=== PATIENT | male | born 1950 | race Caucasian/White ===

== ENCOUNTER 2020-12-05 11:54 | Emergency (ER) | payer OTHER ==
[~2020-12-05] VITALS: Ht 170.2 cm; Wt 76.2 kg
--- NOTE | 2020-12-05 12:00 | NUR ---
BIB RA 79 FROM [employer],WITNESSED SEIZURE,UNABLE TO GIVE ANY HISTORY. PATIENT A/OX2, BREATHING EVEN AND UNLABORED, NO SOB NOTED. IV LINE PRESENTED ON LAC G20. SEIZURE PRECAUTION OBSERVED.
--- NOTE | 2020-12-05 12:03 | NUR ---
URINAL PROVIDED AT BEDSIDE.
[2020-12-05 12:26] LABS: BASOPHILS # (AUTO) 0.1 /CMM (0.0-0.2); BASOPHILS % (AUTO) 1.3 % (0.0-2.0); HEMATOCRIT 30 % (39-51); HEMOGLOBIN 9.8 g/dL (13.5-17.5); LYMPHOCYTES # (AUTO) 0.6 /CMM (0.8-4.8); MEAN CORPUSCULAR HGB CONC 33 g/dl (31.0-36.0); MEAN CORPUSCULAR VOLUME 89 fL (80-96); MONOCYTES # (AUTO) 0.4 /CMM (0.1-1.30); MONOCYTES % (AUTO) 8.2 % (2.0-12.0); NEUTROPHILS # (AUTO) 4.2 /CMM (1.8-8.9); NEUTROPHILS % (AUTO) 77.5 % (43.0-81.0); PLATELET COUNT (AUTO) 269 /CMM (150-450); WHITE BLOOD COUNT (AUTO) 5.4 K/uL (4.3-11.0)
[2020-12-05 12:41] LABS: ALANINE AMINOTRANSFERASE 24 U/L (12-78); ALBUMIN 3.8 g/dL (3.4-5.0); ALCOHOL, BLOOD < 3 mg/dL (0-0); ALKALINE PHOSPHATASE 125 U/L (46-116); ASPARTATE AMINOTRANSFERASE 33 U/L (15-37); BILIRUBIN,DIRECT 0.2 mg/dL (0.0-0.2); BILIRUBIN,TOTAL 0.5 mg/dL (0.2-1.0); CALCIUM, SERUM 8.5 mg/dL (8.5-10.1); CARBON DIOXIDE 22 mmol/L (21-32); CHLORIDE 104 mmol/L (98-107); GLUCOSE 178 mg/dL (74-106); POTASSIUM 3.9 mmol/L (3.5-5.1); SODIUM SERUM 142 mmol/L (136-145); TOTAL PROTEIN, SERUM 7.8 g/dL (6.4-8.2); UREA NITROGEN, BLOOD 12 mg/dL (7-18)
[2020-12-05 12:42] LABS: ACETAMINOPHEN < 10 ug/ml (10-30)
--- NOTE | 2020-12-05 13:24 | NUR ---
PATIENT UNABLE TO PROVIDE URINE, DR. DUBOIS AWARE. CALLED AMUSEMENT CENTRE MANAGER FOR CONSULT.
--- NOTE | 2020-12-05 13:35 | NUR ---
"Ticker Wirer consult: director of professional services consult requested for homelessness. Patient is a 70-year-old, male. SW met with patient at his bedside in the emergency department. Patient was alert and oriented x4. Patient was resting. Per chart, patient was brought in by ambulance on 12/05/20 due to a seizure. Patient stated that he is currently homeless and reported that he receives SSI. Patient stated that he is independent with his ADLs. SW assessed patients history of substance use and patient stated that he has beer occasionally. Patient stated that he has no history of mental illness. Patient denied current suicidal or homicidal ideation. SW offered patient with homeless resources and patient accepted the resources. Patient signed the homeless waiver and SW filed waiver in the patients chart. Patient stated that he will return to his prior living arrangement on the street and can use public transportation. PLAN: Patient will return to his prior living arrangement on the street. No further SS intervention, however, SW will remain available as needed. Year-round shelters: [facility] [address] [address] ; [facility] [address] [place] [address]; [facility] [id number] [facility] [address] SPA 4 | [facility] [place] Provider: First [facility] Serve Address: [address], [address] # of Beds: 48 Population Served: [facility] Provider: [facility] Serve Address: [address] [facility], [address] # of Beds: 73 Population Served: [facility] 6 | [facility] Provider: [facility] Address: [address] [facility], [address] # of Beds: 63 Population Served: [facility] 3 | [facility] Provider: [facility] [place] Address: [address] [facility], [address] # of Beds: 75 Population Served: [facility] 8 | [facility] Provider: [facility] [place] Address: [address] [facility] [place] [place] [address] # of Beds: 80 Population Served: [facility] SPA 1 | [facility] Provider: Feliz BANKS Address: [address] [place] [address], [address] # of Beds: 85 Population Served: [facility] SPA 2 | [facility] Provider: Dora avilez [facility] Address: Confidential (please call for location) # of Beds: 52 Population Served: [facility] SPA 4 | [facility] Provider: [facility] Address: [address] [facility], [address] # of Beds: 49 Population Served: [facility] Provider: [facility] To Serve Address: [address] [place] [address] # of Beds: 27 Population Served: [facility]: [facility]: [address] [facility] ; [facility] [address] [facility] ; [facility] [address] [facility] . Food Resources: [place] [facility] at [facility]- [address] [facility] [place]; Meet Each Need with [facility] ([facility]) [address] [facility]; [facility] [address] [facility]; [facility] [address] [facility] Mental Health resources provided: [facility] [address] [place] [address] ; [facility] [address] [facility] [address], [place] [address] ; [facility] [address] [place] [address] ; [facility] [address] [place], [place] [phone] Healthcare Clinics: [facility] [address] [facility], [address] [place]. [place] ; [facility] [address] [facility] [address] [facility] [address] [address] [facility]. [place] [phone] Counseling--Outpatient [facility] [address] [facility], [address] [place], [place] [address] (Specializes in in-depth psychotherapy for emotional distress: anxiety, depression, interpersonal conflicts, life transitions, childhood abuse) PSYCHIATRIC OUTPATIENT SERVICES [facility] Partial Hospitalization and Intensive Outpatient Program (Managed Care and [place] Only) [address] [place] [facility] [id number] [facility] Partial Hospitalization and Outpatient Program [address] [facility] [place] [address] [facility] Partial Hospitalization and Outpatient Program [address] [facility]. [place], [place] [id number] [facility] [address] [facility]. [address] [place], [place] [id number] [facility] Partial Hospitalization and Outpatient Program [address] [place] [phone] "
--- NOTE | 2020-12-05 13:35 | NUR ---
WING MAILER MACHINE OPERATOR JOVAN AT BEDSIDE FOR CONSULT.
--- NOTE | 2020-12-05 13:42 | NUR ---
PATIENT A/OX4, BREATHING EVEN AND UNLABORED, IN STABLE CONDITION. AMBULATORY WITH A CANE. IV removed. Catheter intact and site benign. Pressure and 4x4 applied to site. No bleeding noted.Patient given written and verbal discharge instructions. Patient verbalizes understanding of instructions. Patient is ambulatory with steady gait. Refuses offer of assisted placement. Patient given list of available shelters in surrounding area.
[2020-12-05 13:44] VITALS: BP 149/77
== END 2020-12-05 13:44 | disposition home or self-care (01) ==
LOC: ER 11:57 → EDBD 11:57 → ER 13:44
DX: R56.9 Unspecified convulsions (principal); Z60.2 Problems related to living alone
CPT/HCPCS: 36415; 70450-TC; 80048-TC; 80076-TC; 85025-TC; G0480

== ENCOUNTER 2021-03-28 20:50 | Emergency (ER) | payer OTHER ==
[~2021-03-28] VITALS: Ht 177.8 cm; Wt 76.2 kg
--- NOTE | 2021-03-28 20:58 | NUR ---
BIBRA C/O GROUND LEVEL FALL, OPEN WOUND ON BACK OF THE HEAD NOT ACTIVE, PT DENIES LOSS OF CONSCIOUSNESS PAIN 5/10, [facility] 15 ABLE TO VEBRLIZED NEEDS BUT POOR HISTORIAN, HOOKED TO MONITOR AND SPOX, WILL CONT TO MONITOR
[2021-03-28] MEDS ORDERED: TDAP [DIPH/PERTUSSIS/TET] 0.5 ML VIAL IM ONE ×2 (21:30→21:46)
[2021-03-28] MEDS ORDERED: IV NS 0.9% 1,000 ML BAG IV ONE (21:30)
--- NOTE | 2021-03-28 21:45 | NUR ---
HAT BODY SORTER AT BED SIDE BLOOD DRAW DONE
[2021-03-28 21:54] LABS: BASOPHILS # (AUTO) 0.1 K/uL (0.0-0.2); BASOPHILS % (AUTO) 1.2 % (0.0-2.0); EOSINOPHILS % (AUTO) 4.8 % (0.0-6.0); HEMATOCRIT 32 % (39-51); HEMOGLOBIN 10.1 g/dL (13.5-17.5); LYMPHOCYTES # (AUTO) 1.4 K/uL (0.8-4.8); MEAN CORPUSCULAR HGB CONC 31 g/dl (31.0-36.0); MEAN CORPUSCULAR VOLUME 85 fL (80-96); MONOCYTES # (AUTO) 0.3 K/uL (0.1-1.30); MONOCYTES % (AUTO) 7.1 % (2.0-12.0); NEUTROPHILS # (AUTO) 2.7 K/uL (1.8-8.9); NEUTROPHILS % (AUTO) 57.9 % (43.0-81.0); PLATELET COUNT (AUTO) 392 K/uL (150-450); RED BLOOD CELL COUNT(AUTO) 3.77 MIL/uL (4.5-6.0); WHITE BLOOD COUNT (AUTO) 4.7 K/uL (4.3-11.0)
[2021-03-28 22:05] LABS: CREATININE 0.7 mg/dL (0.6-1.3); POTASSIUM 4.4 mmol/L (3.5-5.1)
[2021-03-28 22:11] LABS: ALBUMIN 3.5 g/dL (3.4-5.0); BILIRUBIN,DIRECT 0.1 mg/dL (0.0-0.2); BILIRUBIN,TOTAL 0.3 mg/dL (0.2-1.0); TOTAL PROTEIN, SERUM 7.7 g/dL (6.4-8.2)
--- NOTE | 2021-03-29 05:18 | NUR ---
pt comfortably sleeping on bed no sign of any distress will cont to monitor
--- NOTE | 2021-03-29 05:54 | NUR ---
Patient discharged to home in stable condition. Written and verbal after care instructions given. Patient verbalizes understanding of instruction.
[2021-03-29 05:55] VITALS: BP 135/81
== END 2021-03-29 06:39 | disposition home or self-care (01) ==
LOC: ER 21:11
DX: S01.01XA Laceration without foreign body of scalp, initial encounter (principal); F10.129 Alcohol abuse with intoxication, unspecified; Z59.0 Homelessness; Z60.2 Problems related to living alone; W18.39XA Other fall on same level, initial encounter; Y93.89 Activity, other specified; Y92.89 Other specified places as the place of occurrence of the external cause; Y99.8 Other external cause status; Y90.9 Presence of alcohol in blood, level not specified
CPT/HCPCS: 12002; 36415; 70450; 72125; 80048; 80076; 80320; 85025; 90471; 90715; 93005; 96360; 99285; J7030; G0480